=== PATIENT | female | born 1965 | race Caucasian/White ===

== ENCOUNTER 2020-05-03 21:25 | Inpatient (IN) ==
[2020-05-03] MEDS ORDERED: Ketorolac 30 MG/ML VIAL IVP ONE (21:58)
[2020-05-03] MEDS ORDERED: Dexamethasone 4 MG/ML VIAL IVP ONE (21:58)
[2020-05-03] MEDS ORDERED: 0.9 % Sodium Chloride 1,000 ML IVC ONE (21:58)
[2020-05-03 22:06] LABS: Basophils % 0.3 %; Eosinophils % 0.3 %; Hematocrit 32.8 % (35.3-44.9); Immature Granulocytes % 1.1 % (0-4); Lymphocytes # 0.6 K/mcL (0.6-4.6); Lymphocytes % 16.1 %; Mean Corpuscular HGB Conc 33.5 g/dL (31.6-35.5); Mean Corpuscular Hemoglobin 28.5 pg (28.0-33.3); Mean Platelet Volume 9.7 fL (9.4-12.4); Monocytes # 0.2 K/mcL (0.0-1.3); Monocytes % 4.7 %; Neutrophils # 2.8 K/mcL (1.6-8.9); Platelet Count 211 K/mcL (140-400); Red Blood Count 3.86 M/mcL (3.82-4.97); Red Cell Distribution Width 13.9 % (11.5-14.5); Segmented Neutrophils % 77.5 %; White Blood Count 3.6 K/mcL (4.3-11.1)
[2020-05-03 22:21] LABS: Alanine Aminotransferase 24 Units/L (7-52); Albumin 3.8 g/dL (3.5-5.7); Albumin/Globulin Ratio 1.5 (1.1-2.2); Alkaline Phosphatase 52 Units/L (34-104); Aspartate Amino Transferase 26 Units/L (13-39); BUN/Creatinine Ratio 18 (6-26); Bilirubin,Total 0.2 mg/dL (0.3-1.0); Blood Urea Nitrogen 12 mg/dL (6-20); Carbon Dioxide 23 mEq/L (23-29); Chloride 102 mEq/L (98-107); Globulin 2.5 g/dL (2.4-3.5); Glucose 142 mg/dL (70-105); Osmolality,Calculated 282 (280-300); Potassium 3.5 mEq/L (3.5-5.1); Sodium 135 mEq/L (136-145); Total Protein 6.3 g/dL (6.4-8.9); eGFR For African Americans > 60 (> 60); eGFR For Non-African Americans > 60 (> 60)
[2020-05-03 22:37] LABS: ABG Base Excess -4 mEq/L (-2 to 3); ABG HCO3 21 mEq/L (21-27); ABG Oxygen Saturation 97 % (95-98); ABG PCO2 37 mmHg (35-45); ABG PH 7.37 pH Units (7.32-7.45); ABG PO2 89 mmHg (85-104); ABG TCO2 23 mEq/L (20-26)
[2020-05-04] MEDS ORDERED: Naloxone 0.4 MG/ML INJ IVP PRN (00:49)
[2020-05-04] MEDS ORDERED: Ondansetron ODT 4 MG TAB.RAPDIS SL PRN (00:49)
[2020-05-04] MEDS ORDERED: clonazePAM 0.5 MG TABLET PO PRN (00:49)
[2020-05-04] MEDS ORDERED: Ondansetron 4 MG/2 ML VIAL IVP PRN (00:49)
[2020-05-04] MEDS ORDERED: Ipratropium 1 PUFF INHALER IH PRN (01:35)
[2020-05-04] MEDS: 0.9 % Sodium Chloride 1,000 ML IVC SCH ×2 (01:52→16:03)
[2020-05-04 05:36] LABS: Hematocrit 32.3 % (35.3-44.9); Hemoglobin 10.4 g/dL (11.5-15.4); Immature Granulocytes % 0.8 % (0-4); Lymphocytes # 0.4 K/mcL (0.6-4.6); Lymphocytes % 9.4 %; Mean Corpuscular HGB Conc 32.2 g/dL (31.6-35.5); Mean Corpuscular Hemoglobin 27.9 pg (28.0-33.3); Mean Corpuscular Volume 86.6 fL (83.0-100.0); Mean Platelet Volume 9.3 fL (9.4-12.4); Monocytes # 0.1 K/mcL (0.0-1.3); Monocytes % 2.2 %; Platelet Count 206 K/mcL (140-400); Red Blood Count 3.73 M/mcL (3.82-4.97); Red Cell Distribution Width 13.9 % (11.5-14.5); Segmented Neutrophils % 87.6 %; White Blood Count 3.7 K/mcL (4.3-11.1)
[2020-05-04 05:40] LABS: INR 1.3; Prothrombin Time 14.3 Seconds (9.4-12.1)
[2020-05-04 05:44] LABS: Neutrophils # 3.2 K/mcL (1.6-8.9)
[2020-05-04 05:50] LABS: Creatine Kinase 57 Units/L (30-223); Lactate Dehydrogenase 226 Units/L (140-271)
[2020-05-04 05:59] LABS: Alanine Aminotransferase 33 Units/L (7-52); Albumin 3.5 g/dL (3.5-5.7); Albumin/Globulin Ratio 1.5 (1.1-2.2); Alkaline Phosphatase 48 Units/L (34-104); Aspartate Amino Transferase 38 Units/L (13-39); BUN/Creatinine Ratio 15 (6-26); Bilirubin,Total 0.2 mg/dL (0.3-1.0); Blood Urea Nitrogen 11 mg/dL (6-20); Calcium 8.8 mg/dL (8.6-10.3); Carbon Dioxide 28 mEq/L (23-29); Chloride 103 mEq/L (98-107); Globulin 2.4 g/dL (2.4-3.5); Glucose 235 mg/dL (70-105); Osmolality,Calculated 293 (280-300); Potassium 5.1 mEq/L (3.5-5.1); Sodium 138 mEq/L (136-145); Total Protein 5.9 g/dL (6.4-8.9); eGFR For African Americans > 60 (> 60); eGFR For Non-African Americans > 60 (> 60)
[2020-05-04] MEDS ORDERED: *HR* Enoxaparin 40 MG/0.4 ML SYRINGE SQ SCH (06:00)
[2020-05-04] MEDS ORDERED: D5% in Water 1,000 ML IVC PRN (07:10)
[2020-05-04] MEDS ORDERED: *HR* Dextrose 50 % in Water (Vial) 50 ML VIAL IVP PRN (07:10)
[2020-05-04] MEDS ORDERED: Dextrose Gel 15 GM/37.5 ML TUBE PO PRN ×2 (07:10)
[2020-05-04] MEDS ORDERED: Azithromycin 500 MG in 0.9 % Sodium Chloride 250 ML IVPB SCH (08:00)
[2020-05-04 08:15] LABS: C-Reactive Protein 146 mg/L (Less than 10)
[2020-05-04 08:34] LABS: Ferritin 129 ng/mL (10-120)
[2020-05-04] MEDS ORDERED: cefTRIAXone 1,000 MG in 0.9 % Sodium Chloride Mini Bag 100 ML IVPB SCH (09:00)
[2020-05-04] MEDS ORDERED: hydroCHLOROthiazide 25 MG TABLET PO SCH (09:00)
[2020-05-04] MEDS ORDERED: Famotidine 20 MG TABLET PO SCH (09:00)
[2020-05-04] MEDS ORDERED: COENZYME Q10 30 MG PO SCH (09:00)
[2020-05-04] MEDS ORDERED: Aspirin 81 MG TAB.CHEW PO SCH (09:00)
[2020-05-04] MEDS ORDERED: Multivit/Ca/Min/Fe/FA 1 TAB TABLET PO SCH (09:00)
[2020-05-04] MEDS ORDERED: Dexamethasone Sodium Phos/PF 10 MG/ML VIAL IVP SCH (09:00)
[2020-05-04] MEDS ORDERED: *HR* Metformin 500 MG TABLET PO SCH (09:00)
[2020-05-04] MEDS: Insulin LISPRO 300 UNITS/3 ML VIAL SQ SCH ×3 (09:02→17:12)
[2020-05-04] MEDS: PARoxetine 20 MG TABLET PO SCH ×2 (09:22→17:16)
[2020-05-04] MEDS: gemfibroziL 600 MG TABLET PO SCH ×2 (09:23→17:13)
[2020-05-04] MEDS ORDERED: Ketorolac 30 MG/ML VIAL IVP ONE (09:55)
[2020-05-04] MEDS: Acetaminophen 325 MG TABLET PO PRN ×2 (09:55→16:03)
[2020-05-04] MEDS ORDERED: Furosemide 20 MG/2 ML VIAL IVP ONE (16:38)
[2020-05-04 20:00] VITALS: BP 118/73
[2020-05-04] MEDS ORDERED: PARoxetine 20 MG TABLET PO SCH (21:00)
[2020-05-04] MEDS ORDERED: Insulin LISPRO 300 UNITS/3 ML VIAL SQ SCH (21:00)
== END 2020-05-04 21:45 | disposition short-term general hospital (02) | DRG 177 ==
LOC: EMEROOGRE 21:25 → INPGRE 05-04 00:34
PROVIDERS: ADMIT Family Medicine; ATTEND Family Medicine